=== PATIENT | female | born 1985 | race Caucasian/White ===

== ENCOUNTER 2017-07-02 17:15 | Emergency (ER) | payer MEDICAID ==
[~2017-07-02] VITALS: Ht 165.1 cm; Wt 83.9 kg
--- NOTE | 2017-07-02 17:29 | NUR ---
BILATERAL EAR PAIN, SORE THROAT, NOSE BLEED, HEADACHE x 2 DAYS
[2017-07-02] MEDS ORDERED: LIDOCAINE VISCOUS 2% UD 15 ML UDC ONE (18:14)
[2017-07-02] MEDS ORDERED: IBUPROFEN 600 MG TABLET PO ONE ×2 (18:14→18:30)
[2017-07-02] MEDS ORDERED: LIDOCAINE VISCOUS 2% UD 15 ML UDC MM ONE (18:30)
[2017-07-02 18:31] VITALS: BP 125/82
== END 2017-07-02 18:31 | disposition home or self-care (01) ==
LOC: ER 17:20
DX: J02.8 Acute pharyngitis due to other specified organisms (principal); R04.0 Epistaxis
CPT/HCPCS: 99283; A4606; Z7610